=== PATIENT | female | born 1985 | race Two or more races ===

== ENCOUNTER 2019-10-23 05:46 | Emergency (ER) | payer BC, OTHER ==
[~2019-10-23] VITALS: Ht 162.6 cm; Wt 63.6 kg
[2019-10-23 06:00] VITALS: BP 133/83
[2019-10-23] MEDS ORDERED: ALBU2.5V8 INH (06:44)
[2019-10-23] MEDS ORDERED: HYDR25TA PO (06:44)
--- NOTE | 2019-10-23 06:46 | PHYS DOC ---
Past Medical History Past Medical History: No Pertinent History Additional Past Medical Histor: GESTATIONAL DIABETES Past Surgical History: No Surgical History Smoking Status: Never Smoker Alcohol Use: None General Adult EDM: Chief Complaint: SHORTNESS OF BREATH HPI: HPI: 34-year-old female presenting to the emergency department today with intermittent shortness of breath and feeling some chills. She denies having fever. Her father was recently tested coronavirus and was positive. She denies any unilateral leg swelling or hemoptysis. She has a history of asthma but has not been using an inhaler at home. She denies chest pain or abdominal pain vomiting or fevers. Onset a few days. Location lungs. Duration intermittent. No relieving factors. Review of systems negative for chest pain abdominal pain headache neck stiffness. All other review of systems negative. ED course: 34-year-old female presenting with intermittently feeling short of breath and recently exposed to coronavirus. Here in the emergency department she is breathing comfortably on room air satting 100%. Her heart rate is within normal limits. PERC criteria used to exclude PE. Given her recent exposure to coronavirus I recommend she get tested however she was tested yesterday after investigating more into this. The patient is asking for medication to take at home for her shortness of breath and also asking for an anxiety medication. We will give her albuterol and hydroxyzine to take as needed at home. Have her follow-up with her doctor in 1 to 2 days. Heart Score: Risk Factors: Risk Factors: DM, Current or recent (<one month) smoker, HTN, HLP, family history of CAD, obesity. Risk Scores: Score 0 - 3: 2.5% MACE over next 6 weeks - Discharge Home Score 4 - 6: 20.3% MACE over next 6 weeks - Admit for Clinical Observation Score 7 - 10: 72.7% MACE over next 6 weeks - Early Invasive Strategies Physical Exam: PE: Constitutional: Well developed, well nourished, no acute distress, non-toxic appearance. [] HENT: Normocephalic, atraumatic, bilateral external ears normal, oropharynx moist, no oral exudates, nose normal. [] Eyes: PERRLA, EOMI, conjunctiva normal, no discharge. [] Neck: Normal range of motion, no tenderness, supple, no stridor. [] Cardiovascular:Heart rate regular rhythm, no murmur [] Lungs & Thorax: Bilateral breath sounds clear to auscultation Abdomen: Bowel sounds normal, soft, no tenderness, no masses, no pulsatile masses. [] Skin: Warm, dry, no erythema, no rash. [] Back: No tenderness, no CVA tenderness. [] Extremities: No tenderness, no cyanosis, no clubbing, ROM intact, no edema. [] Neurologic: Alert and oriented X 3, normal motor function, normal sensory function, no focal deficits noted. [] Psychologic: Affect normal, judgement normal, mood normal. [] Current Patient Data: Vital Signs: Vital Signs Date Time Temp Pulse Resp B/P (MAP) Pulse Ox O2 Delivery O2 Flow Rate FiO2 10/23/19 06:00 98.1 98 20 133/83 (100) 100 Room Air 98.1 EKG: EKG: [] Radiology/Procedures: Radiology/Procedures: [] Course & Med Decision Making: Course & Med Decision Making Pertinent Labs and Imaging studies reviewed. (See chart for details) [] Dragon Disclaimer: DragMatchbin Disclaimer: This electronic medical record was generated, in whole or in part, using a voice recognition dictation system. Departure Departure Impression: Primary Impression: Dyspnea Additional Impression: Asthma Disposition: 01 HOME, SELF-CARE Condition: STABLE Referrals: POP PETERS MD (PCP) Additional Instructions: Thank you for visiting [facility]. We appreciate you trusting us with your care. If any additional problems come up please don't hesitate to return to visit us. Follow up with your primary care provider so they can plan additional care if needed and know about the problem that you had today. If symptoms worsen come back to the Emergency Department. Any concerning symptoms that start such as chest pain, shortness of air, weakness or numbness on one side of the body, running high fevers or any other concerning symptoms return to the ER. You have a viral syndrome which may include symptoms like muscle aches, fevers, chills, runny nose, cough, sneezing, sore throat, nausea, vomiting, or diarrhea. One of the potential viruses that you may have is SARS-CoV-2, the virus that causes COVID-19, also known as the Coronavirus. You could also have a different viral infection such as the common cold, flu, etc. Most patients with the Coronavirus have mild symptoms and recover on their own. Resting, staying hydrated, and sleep based on known cases can be helpful. As of todays visit, you are well enough to go home and treat your symptoms with oral fluids and over the counter medications. Please follow the following precautions at home: 1) Stay home except to get medical care. 2) As advised by the CDC, we recommend that you stay in your home and minimize contact with other people. We do not want you to spread the infection. 3) Those who are older or have significant medical issues may have more severe symptoms from this infection. We recommend self-isolation FOR AT LEAST 7 DAYS after your 1st day of symptoms. AFTER you feel better please wait AT LEAST ANOTHER 3 days before returning to regular activities and being around other people. 4) IF you become sicker and have difficulty breathing, chest pain, are unable to eat/drink, severe vomiting, diarrhea, or weakness you may need to return to the Emergency Department. 5) You should restrict activities outside of your home, except for getting medical care. DO NOT go to work, school, or public areas. Avoid using public transportation, ride sharing, or taxis. 6) Separate yourself from other people in your home. You should use a separate bathroom if possible. 7) Avoid sharing personal household items such as dishes, cups, eating utensils, towels, etc. 8) Clean all high touch surfaces every day (door knobs, counter tops, etc). Use a household cleaning spray or wipe per label instructions. 9) Clean your hands often. Wash your hands with soap and water for at least 20 seconds. 10) Cover your mouth and nose when you cough or sneeze. 11) Throw used tissues in the trash and immediately wash your hands. For additional resources please visit the CDC website or the [facility] ([phone]), you may also call 311 for further information. Scripts Hydroxyzine Hcl (HYDROXYZINE HCL) 25 Mg Tablet 1 TAB PO BID PRN for ANXIETY / AGITATION MDD 2 tablets, #12 TAB 0 Refills Prov: OLGA MOYA MD 10/23/19 Albuterol Sulfate (PROAIR HFA INHALER) 8.5 Gm Hfa.aer.ad 1 PUFF INH PRN Q6HRS PRN for SHORTNESS OF BREATH, #1 INHALER 0 Refills Prov: OLGA MOYA MD 10/23/19 Justicifation of Admission Dx: Justifications for Admission: Justification of Admission Dx: N/A OLGA MOYA MD Oct 23, 2019 06:46
== END 2019-10-23 07:12 | disposition home or self-care (01) ==
LOC: ER 05:46
DX: J45.909 Unspecified asthma, uncomplicated (principal)
CPT/HCPCS: 82962; 99283